=== PATIENT | female | born 1940 | race Caucasian/White ===

== ENCOUNTER 2022-06-09 12:03 | Emergency (ER) | payer MEDICARE, OTHER ==
[2022-06-09] MEDS ORDERED: LORazepam 2 MG/ML SDV IVPUSH ONE (12:36)
[2022-06-09] MEDS ORDERED: cefTRIAXone 1 GM Vial IVPUSH ONE (14:21)
[2022-06-09 17:43] VITALS: BP 164/78; PULSE 84
[2022-06-11] MEDS ORDERED: HYDROmorphone 0.5 MG/0.5 ML Syringe IVPUSH ONE (11:01)
== END 2022-06-09 17:52 | disposition short-term general hospital (02) ==
LOC: VM.ED 12:03 → SUPCPDRO 12:03 → VM.ED 17:52
DX: R07.9 Chest pain, unspecified (principal); R77.8 Other specified abnormalities of plasma proteins; I25.10 Atherosclerotic heart disease of native coronary artery without angina pectoris; E78.00 Pure hypercholesterolemia, unspecified; I10 Essential (primary) hypertension; K21.9 Gastro-esophageal reflux disease without esophagitis; Z79.82 Long term (current) use of aspirin; Z79.899 Other long term (current) drug therapy
CPT/HCPCS: 36415; 70450; 81001; 84484; 87086; 87088; 87186; 96374; 96375; 99284; 99285-25; J0696; J2060

== ENCOUNTER 2022-10-09 14:20 | Emergency (ER) | payer MEDICARE, OTHER ==
[2022-10-09 15:00] LABS: BASOPHILS PERCENT AUTO 0.4 % (0.2-1.2); EOSINOPHILS ABSOLUTE AUTO 0.2 x10^3/uL (0.0-0.5); EOSINOPHILS PERCENT AUTO 2.6 % (0.0-4.0); HEMATOCRIT 34.1 % (33.0-47.0); HEMOGLOBIN 11.5 g/dL (12.0-16.0); IMMATURE GRAN ABSOLUTE AUTO 0.01 x10^3/uL (0.00-0.07); LYMPHOCYTES ABSOLUTE AUTO 0.9 x10^3/uL (1.0-4.8); LYMPHOCYTES PERCENT AUTO 12.5 % (25.0-50.0); MEAN CORPUSCULAR HEMOGLOBIN 30.2 pg (26.0-32.0); MEAN CORPUSCULAR HGB CONC 33.7 g/dL (32.0-36.0); MEAN CORPUSCULAR VOLUME 89.5 fL (78.0-93.0); MONOCYTES ABSOLUTE AUTO 0.6 x10^3/uL (0.0-0.8); MONOCYTES PERCENT AUTO 8.3 % (2.0-11.0); NEUTROPHILS ABSOLUTE AUTO 5.6 x10^3/uL (1.8-7.7); NEUTROPHILS PERCENT AUTO 76.1 % (50.0-80.0); PLATELET COUNT,PLT 240 x10^3/uL (130-400); RED BLOOD CELL COUNT 3.81 x10^6/uL (4.00-5.50); WHITE BLOOD CELL COUNT,WBC 7.4 x10^3/uL (4.0-10.0)
[2022-10-09 15:20] LABS: A/G RATIO 1.37; ALANINE AMINOTRANSFERASE,ALT 13 U/L (14-59); ALBUMIN 3.7 g/dL (3.4-5.0); ALKALINE PHOSPHATASE 99 U/L (46-116); ASPARTATE AMNIOTRANSFERASE,AST 17 U/L (15-37); BILIRUBIN TOTAL 0.5 mg/dL (0.2-1.0); BLOOD UREA NITROGEN,BUN 30 mg/dL (7-18); C-REACTIVE PROTEIN 0.07 mg/dL (<=0.30); CALCIUM 9.2 mg/dL (8.5-10.1); CARBON DIOXIDE,CO2 22 mmol/L (21-32); CHLORIDE,CL 102 mmol/L (98-107); CREATINE KINASE,CK 76 U/L (26-192); CREATININE 1.2 mg/dL (0.55-1.02); GLUCOSE RANDOM 132 mg/dL (70-99); LACTATE DEHYDROGENASE,LDH 171 U/L (81-234); POTASSIUM,K 3.5 mmol/L (3.5-5.1); PROTEIN TOTAL,TP 6.4 g/dL (6.4-8.2); SODIUM,NA 140 mmol/L (136-145)
[2022-10-09 15:21] LABS: ANION GAP 19.5 mmol/L (5-15); ESTIMATED GFR 45 mL/min (>=60)
[2022-10-09 15:28] LABS: BILIRUBIN,URINE NEGATIVE (NEGATIVE); COLOR,URINE YELLOW (YELLOW); GLUCOSE,URINE NEGATIVE (NEGATIVE); KETONES,URINE NEGATIVE (NEGATIVE); LEUKOCYTE ESTERASE,URINE TRACE (NEGATIVE); NITRITE,URINE NEGATIVE (NEGATIVE); OCCULT BLOOD,URINE NEGATIVE (NEGATIVE); PROTEIN,URINE NEGATIVE (NEGATIVE); UROBILINOGEN,URINE 0.2 EU/dL (0.2)
[2022-10-09 15:30] LABS: APPEARANCE,URINE SLIGHTLY CLOUDY (CLEAR)
[2022-10-09 15:36] LABS: BACTERIA,URINE RARE /HPF (NOT SEEN); MUCUS,URINE RARE /LPF (NOT SEEN); RBC,URINE 0-5 /HPF (NOT SEEN); SQUAMOUS EPITHELIAL CELLS,UR FEW /HPF (NOT SEEN); WBC,URINE 0-5 /HPF (NOT SEEN)
[2022-10-09 16:46] VITALS: BP 128/78; PULSE 88
== END 2022-10-09 16:03 | disposition home or self-care (01) ==
LOC: VM.ED 14:20
DX: E86.0 Dehydration (principal); I25.10 Atherosclerotic heart disease of native coronary artery without angina pectoris; I10 Essential (primary) hypertension; E78.00 Pure hypercholesterolemia, unspecified; K21.9 Gastro-esophageal reflux disease without esophagitis; Z87.891 Personal history of nicotine dependence; Z79.82 Long term (current) use of aspirin; Z79.899 Other long term (current) drug therapy
CPT/HCPCS: 36415; 71046; 80053; 81001; 82550; 83615; 84484; 85025; 86140; 87086; 87088; 87186; 93005; 93010; 99284; 99285